=== PATIENT | female | born 1950 | race Caucasian/White ===

== ENCOUNTER → 2017-01-28 | Outpatient (CLI) | payer BC ==
[~2017-01-28] MED LIST: DAILY MULTIPLE1 EAC1 PO; FISH OIL PO; HYDROCODON-ACE1 EAC4 PO; LIPITOR DPS40 MG PO; LISINOPRIL20 MG PO; OMNICEF DPS300 MG PO; VITAMIN C500 M4 PO; VITAMIN D31000 UNI1 PO
== END | disposition home or self-care (01) ==
LOC: RAD.S 01-02 13:16 → PTH.S 08:36
DX: C64.1 Malignant neoplasm of right kidney, except renal pelvis (principal); R91.1 Solitary pulmonary nodule; Z90.5 Acquired absence of kidney

== ENCOUNTER → 2017-02-11 | Outpatient (CLI) | payer BC | END | disposition home or self-care (01) | LOC: RAD.S 13:13 | DX: Z12.31 Encounter for screening mammogram for malignant neoplasm of breast (principal); Z80.3 Family history of malignant neoplasm of breast ==